=== PATIENT | female | born 1940 | race Caucasian/White ===

== ENCOUNTER 2016-12-30 13:09 | Inpatient (IN) | payer OTHER ==
[~2016-12-30] VITALS: Ht 157.5 cm; Wt 70.2 kg
[~2016-12-30 13:09] MED LIST: ASPI-482 PO; ATOR10TA69 PO; CARV12.530 PO; DIGO125T PO; DOCU250C16 PO; FENO134C PO; FERR-89 PO; FURO20 PO; INSLAN SQ; INSU100V SQ; LEVO75TA10 PO; LINA5TAB PO; LOSA50TA2 PO; MIRT30TA6; NIFE60TA12 PO; NITR0.4T50 SL; OMEP20CA10 PO; POTA-9 PO
[2016-12-30] MEDS ORDERED: DULA0.75 SQ (13:27)
[2016-12-30] MEDS ORDERED: CHOL200016 PO (13:27)
[2016-12-30] MEDS ORDERED: CITA10TA68 PO (13:27)
[2016-12-30 13:42] LABS: GLUCOSE,POINT OF CARE 189 MG/DL (70-110)
[2016-12-30 13:56] LABS: BASOPHILS % (AUTO) 1.8 % (0.0-2.0); EOSINOPHILS % (AUTO) 1.7 % (1.0-6.0); HEMATOCRIT 36.2 % (36-46); HEMOGLOBIN 12.3 g/dL (12.0-16.0); LYMPHOCYTES # (AUTO) 2.7 K/uL (1.0-4.8); LYMPHOCYTES % (AUTO) 45.9 % (22.0-44.0); MEAN CORPUSCULAR HEMOGLOBIN 30.3 pg (26.0-34.0); MEAN CORPUSCULAR HGB CONC 33.9 G/dL (31.0-37.0); MEAN CORPUSCULAR VOLUME 89 fL (80-100); MONOCYTES # (AUTO) 0.3 K/uL (0.1-1.0); MONOCYTES % (AUTO) 5.5 % (2.0-9.0); NEUTROPHILS # (AUTO) 2.7 K/uL (1.8-7.7); NEUTROPHILS % (AUTO) 45.1 % (40.0-70.0); PLATELET COUNT (AUTO) 220 K/uL (150-450); RED BLOOD CELL COUNT(AUTO) 4.04 MIL/uL (4.00-5.20); RED CELL DISTRIBUTION WIDTH 13.3 % (11.5-14.5); WHITE BLOOD COUNT (AUTO) 5.9 K/uL (4.5-11.0)
[2016-12-30 14:08] LABS: CALCIUM, TOTAL 8.8 mg/dL (8.8-10.5); CREATININE 1.2 mg/dL (0.60-1.30); POTASSIUM 4.3 mmol/L (3.5-5.1)
[2016-12-30 14:20] LABS: ALBUMIN 3.4 g/dL (3.4-5.0); BILIRUBIN,TOTAL 0.3 mg/dL (0.1-1.0); TOTAL PROTEIN, SERUM 7.4 g/dL (6.4-8.2)
[2016-12-30] MEDS ORDERED: NITROGLYCERIN 2% (1 GM=INCH) PACKET TP ONE (14:45)
[2016-12-30] MEDS ORDERED: ACETAMINOPHEN 325 MG TABLET PO PRN (15:00)
[2016-12-30] MEDS ORDERED: DEXTROSE 50%-WATER 25 GM/50 ML SYRINGE IVP PRN (15:00)
[2016-12-30] MEDS ORDERED: MAGNESIUM HYDROXIDE SUSPENSION 30 ML UDCUP PO PRN (15:00)
[2016-12-30] MEDS: AmLODIPine BESYLATE 5 MG TABLET PO SCH (15:29)
[2016-12-30] MEDS: HEPARIN SODIUM,PORCINE 5,000 UNITS/ML VIAL SQ SCH (15:29)
[2016-12-30] MEDS: LISINOPRIL 10 MG TABLET PO SCH (15:29)
[2016-12-30] MEDS ORDERED: ASPIRIN 81 MG CHEWABLE TABLET PO ONE (18:00)
[2016-12-30 20:18] VITALS: BP 154/63
[2016-12-30] MEDS: ATORVASTATIN CALCIUM 20 MG TABLET PO SCH (20:43)
[2016-12-30] MEDS: DOCUSATE SODIUM 100 MG CAPSULE PO SCH (20:43)
[2016-12-30] MEDS: CARVEDILOL 12.5 MG TABLET PO SCH (20:43)
[2016-12-30] MEDS: INSULIN ASPART 100 UNITS/ML SQ PRN (20:47)
[2016-12-31] VITALS (8 sets, daily range): BP systolic 95–179; BP diastolic 37–80
[2016-12-31] MEDS: HEPARIN SODIUM,PORCINE 5,000 UNITS/ML VIAL SQ SCH ×3 (00:56→18:11)
[2016-12-31] MEDS: INSULIN ASPART 100 UNITS/ML SQ PRN ×4 (06:18→21:00)
[2016-12-31 07:48] LABS: GLUCOSE COMMENT 1 Received Meds; GLUCOSE,POINT OF CARE 160 MG/DL (70-110)
[2016-12-31 07:48] LABS: GLUCOSE COMMENT 1 Received Meds; GLUCOSE,POINT OF CARE 282 MG/DL (70-110)
[2016-12-31] MEDS: AmLODIPine BESYLATE 5 MG TABLET PO SCH (08:14)
[2016-12-31] MEDS: DOCUSATE SODIUM 100 MG CAPSULE PO SCH ×2 (08:14→20:56)
[2016-12-31] MEDS: CARVEDILOL 12.5 MG TABLET PO SCH ×2 (08:14→20:56)
[2016-12-31] MEDS: ASPIRIN 81 MG CHEWABLE TABLET PO SCH (08:14)
[2016-12-31] MEDS: LISINOPRIL 10 MG TABLET PO SCH (10:33)
[2016-12-31] MEDS: ATORVASTATIN CALCIUM 20 MG TABLET PO SCH (20:55)
[2017-01-01] MEDS: HEPARIN SODIUM,PORCINE 5,000 UNITS/ML VIAL SQ SCH ×2 (00:05→08:07)
[2017-01-01 04:28] LABS: GLUCOSE COMMENT 1 Received Meds; GLUCOSE,POINT OF CARE 202 MG/DL (70-110)
[2017-01-01 04:28] LABS: GLUCOSE COMMENT 1 Received Meds; GLUCOSE,POINT OF CARE 171 MG/DL (70-110)
[2017-01-01 04:28] LABS: GLUCOSE COMMENT 1 Received Meds; GLUCOSE,POINT OF CARE 152 MG/DL (70-110)
[2017-01-01 05:00] VITALS: BP 118/70
[2017-01-01] MEDS: INSULIN ASPART 100 UNITS/ML SQ PRN ×2 (06:30→12:16)
[2017-01-01 07:07] LABS: GLUCOSE COMMENT 1 Received Meds; GLUCOSE,POINT OF CARE 161 MG/DL (70-110)
[2017-01-01 07:41] VITALS: BP 143/63
[2017-01-01] MEDS: LISINOPRIL 10 MG TABLET PO SCH (08:06)
[2017-01-01] MEDS: ASPIRIN 81 MG CHEWABLE TABLET PO SCH (08:07)
[2017-01-01] MEDS: DOCUSATE SODIUM 100 MG CAPSULE PO SCH (08:07)
[2017-01-01] MEDS: CARVEDILOL 12.5 MG TABLET PO SCH (08:07)
[2017-01-01 11:37] VITALS: BP 133/67
[2017-01-01 11:57] LABS: GLUCOSE,POINT OF CARE 192 MG/DL (70-110)
== END 2017-01-01 13:15 | disposition home or self-care (01) | DRG 313 ==
LOC: EMS 13:10 → 5N 17:57
PROVIDERS: ADMIT Internal Medicine; ATTEND Internal Medicine
DX: R07.89 Other chest pain (principal); I25.110 Atherosclerotic heart disease of native coronary artery with unstable angina pectoris; E11.22 Type 2 diabetes mellitus with diabetic chronic kidney disease; I13.0 Hypertensive heart and chronic kidney disease with heart failure and stage 1 through stage 4 chronic kidney disease, or unspecified chronic kidney disease; I50.9 Heart failure, unspecified; F45.41 Pain disorder exclusively related to psychological factors; N18.3 Chronic kidney disease, stage 3 (moderate); E03.9 Hypothyroidism, unspecified; Z95.1 Presence of aortocoronary bypass graft; H54.62 Unqualified visual loss, left eye, normal vision right eye; Z90.49 Acquired absence of other specified parts of digestive tract; Z90.710 Acquired absence of both cervix and uterus; E11.319 Type 2 diabetes mellitus with unspecified diabetic retinopathy without macular edema; E78.5 Hyperlipidemia, unspecified; F32.9 Major depressive disorder, single episode, unspecified; F41.1 Generalized anxiety disorder; Z79.4 Long term (current) use of insulin; Z79.82 Long term (current) use of aspirin
CPT/HCPCS: 82962; 93005; 93306; 99285; J1644